=== PATIENT | female | born 1970 | race Caucasian/White ===

== ENCOUNTER 2016-04-24 12:07 | Emergency (ER) | payer MEDICAID ==
--- NOTE | 2016-04-24 12:22 | Emergency Department Record ---
History of Present Illness - General Chief Complaint: Back Pain/Injury Stated Complaint: BACK/HIP PAIN Time Seen by Provider: 04/24/16 12:21 Source: Patient Mode of Arrival: Ambulatory Limitations: No limitations - History of Present Illness Initial Comments: 46 yo female presents to ED with a CC of worsening of her chronic low back pain symptoms. Patient reports that she has been out her Flexeril for several months , has only been using Motrin as needed for her pain symptoms. Patient denies any new injury or trauma, and denies lower extremity weakness, bowel or bladder dysfunction, urinary retention, or groin numbness. MD Complaint: Back pain -: Year(s) Place: Home Radiation: None Consistency: Constant Improves With: None Worsens With: Movement, Other Context: Unknown Associated Symptoms: Denies other symptoms Treatments Prior to Arrival: Heat therapy - Related Data Home Medications Medication Instructions Recorded Confirmed Last Taken Cyclobenzaprine HCl [Flexeril] 10 mg PO DAILY PRN 07/14/14 04/24/16 3 Days Ago Acetaminophen [Tylenol Extra 1,000 mg PO DAILY tab 07/02/15 04/24/16 04/23/16 Strength] Ibuprofen 400 mg PO ASDIR tab 09/01/15 04/24/16 04/23/16 [facility] Wart 300 mg PO DAILY 09/07/15 04/24/16 Unknown Vitamin B Complex 1 each PO DAILY cap 09/07/15 04/24/16 04/23/16 Previous Rx's Medication Instructions Recorded Cyclobenzaprine HCl [Flexeril] 10 mg PO TID PRN #15 tablet 04/24/16 Allergies Allergy/AdvReac Type Severity Reaction Status Date / Time diphenhydramine HCl AdvReac Mild RAPID Verified 04/24/16 12:17 [From Benadryl] HEART RATE Travel Screening - Travel/Exposure Within Last 30 Days Have you traveled within the last 30 days?: No - Travel/Exposure Within Last Year Have you traveled outside the [place] in the last year?: No - Additonal Travel Details Have you been exposed to anyone with a communicable illness?: No - Travel Symptoms Symptom Screening: None Review of Systems Constitutional: Denies: Chills, Fever, Malaise, Night sweats Eyes: Denies: Eye discharge, Eye pain ENT: Denies: Congestion, Ear pain, Epistaxis Respiratory: Denies: Cough, Dyspnea Cardiovascular: Denies: Dyspnea on exertion, Syncope Endocrine: Denies: Fatigue, Heat or cold intolerance Gastrointestinal: Denies: Abdominal pain, Nausea, Vomiting Genitourinary: Denies: Dysuria, Frequency, Hematuria, Incontinence Musculoskeletal: Reports: Back pain. Denies: Arthralgia, Gout, Joint swelling Skin: Denies: Bruising, Change in color, Rash Neurological: Denies: Abnormal gait, Confusion, Headache, Seizure Psychiatric: Denies: Anxiety Hematological/Lymphatic: Denies: Anemia, Blood Clots Past Medical History - SOCIAL HISTORY Smoking Status: Never smoker Alcohol Use: Rare Drug Use: None - RESPIRATORY Hx Respiratory Disorders: No - CARDIOVASCULAR Hx Hypertension: Yes - NEURO Hx Neuro Disorders: No - GI Hx GI Disorders: No - Hx Genitourinary Disorders: No - ENDOCRINE Hx Endocrine Disorders: No - MUSCULOSKELETAL Hx Musculoskeletal Disorders: Yes Hx Back Injury: Yes - PSYCH Hx Psych Problems: Yes Hx Anxiety: Yes - HEMATOLOGY/ONCOLOGY Hx Hematology/Oncology Disorders: No Family Medical History Any Significant Family History?: No Physical Exam - General General Appearance: Alert, Oriented x3, Cooperative, Mild distress Limitations: No limitations - Head Head exam: Atraumatic, Normocephalic, Normal inspection Head exam detail: negative: Abrasion, Contusion, Sierra's sign, General tenderness, Hematoma, Laceration - Eye Eye exam: Normal appearance. negative: Conjunctival injection, Periorbital swelling, Periorbital tenderness, Scleral icterus - ENT Ear exam: negative: Auricular hematoma, Auricular trauma Nasal Exam: negative: Active bleeding, Discharge, Dried blood, Foreign body Mouth exam: negative: Drooling, Laceration, Muffled voice, Tongue elevation - Neck Neck exam: Normal inspection. negative: Meningismus, Tenderness - Respiratory Respiratory exam: Normal lung sounds bilaterally. negative: Rales, Respiratory distress, Rhonchi, Stridor - Cardiovascular Cardiovascular Exam: Regular rate, Normal rhythm, Normal heart sounds - GI/Abdominal GI/Abdominal exam: Soft. negative: Rebound, Rigid, Tenderness - Rectal Rectal exam: Deferred - exam: Deferred - Extremities Extremities exam: Normal inspection. negative: Pedal edema, Tenderness - Back Back exam: Reports: Paraspinal tenderness (lower lumbar spine on examination). Denies: CVA tenderness (R), CVA tenderness (L) - Neurological Neurological exam: Alert, Normal gait, Oriented X3 - Psychiatric Psychiatric exam: Normal affect, Normal mood - Skin Skin exam: Normal color. negative: Abrasion Type of lesion: negative: abrasion Course Vital Signs 04/24/16 12:09 Temperature 98.6 F Pulse Rate 84 Respiratory 18 Rate Blood Pressure 157/110 Pulse Ox 98 - Reevaluation(s) Reevaluation #1: 04/24/16 12:26 Patient denies any symptoms that are c/w spinal cord compression syndrome, will prescribe Flexeril for her increased back pain symptoms with instructions for follow-up in 3-5 days with Cat Gilliland. Disposition Disposition: Discharge Clinical Impression: Exacerbation of chronic back pain Disposition: Home, Self-Care Condition: (2) Stable Instructions: Low Back Strain (ED) Additional Instructions: Return to ED if your symptoms worsen of if you have any concerns. Flexeril as directed. Follow-up with Cat Gilliland in 3-5 days as directed. Prescriptions: Cyclobenzaprine HCl [Flexeril] 10 mg PO TID PRN #15 tablet PRN Reason: Pain - Moderate (5-7) Forms: Patient Portal Access Time of Disposition: 12:22
== END 2016-04-24 12:27 | disposition home or self-care (01) ==
LOC: ER 12:07
DX: G89.29 Other chronic pain (principal); M54.5 Low back pain; I10 Essential (primary) hypertension
CPT/HCPCS: 99282

== ENCOUNTER 2017-09-22 20:31 | Emergency (ER) | payer MEDICAID ==
--- NOTE | 2017-09-22 20:50 | Emergency Department Record ---
History of Present Illness - General Chief complaint: Rash Stated complaint: RASH Time Seen by Provider: 09/22/17 20:40 Source: Patient Mode of Arrival: Ambulatory - History of Present Illness Initial comments: Patient states that she has had a rash on her right elbow area for 24 hours. She put Calamine lotion on it, but it has not helped. She won't take benadryl because it makes her heart race. She has had poison teresa twice in the past, but doesn't think she has been exposed to it recently. She denies shortness of breath or dysphagia. She has no diabetes or blood sugar problems. She thinks she is getting itchy all over her body, but hasn't seen any rashes elsewhere.Denies other complaints Onset/Timin -: Days(s) Quality: Other Consistency: Constant Improves with: None Worsens with: None Context: None Associated symptoms: Itching Treatments Prior to Arrival: OTC topical medication Treatment Prior to Arrival Comment:: calamine lotion - Related Data Previous Rx's Medication Instructions Recorded Hydroxyzine HCl [Atarax] 50 mg PO QID #20 tablet 09/22/17 Prednisone [Prednisone 20Mg] 20 mg PO DAILY #20 tab 09/22/17 Allergies Allergy/AdvReac Type Severity Reaction Status Date / Time diphenhydramine HCl AdvReac Mild RAPID Verified 09/22/17 20:41 [From Benadryl] HEART RATE Travel Screening - Travel/Exposure Within Last 30 Days Have you traveled within the last 30 days?: No - Travel/Exposure Within Last Year Have you traveled outside the [place] in the last year?: No - Additonal Travel Details Have you been exposed to anyone with a communicable illness?: No - Travel Symptoms Symptom Screening: None Review of Systems Reviewed: No additional complaints except as noted below Constitutional: Reports: As per HPI. Denies: Chills, Fever, Malaise, Night sweats, Weakness, Weight change Eyes: Reports: As per HPI. Denies: Eye discharge, Eye pain, Photophobia, Vision change ENT: Reports: As per HPI. Denies: Congestion, Dental pain, Ear pain, Epistaxis , Hearing loss, Throat pain Respiratory: Reports: As per HPI. Denies: Cough, Dyspnea, Hemoptysis, Stridor, Wheezes Cardiovascular: Reports: As per HPI. Denies: Arrhythmia, Chest pain, Dyspnea on exertion, Edema, Murmurs, Orthopnea, Palpitations, Paroxysmal nocturnal dyspnea, Rheumatic Fever, Syncope Endocrine: Reports: As per HPI. Denies: Fatigue, Heat or cold intolerance, Polydipsia, Polyuria Gastrointestinal: Reports: As per HPI. Denies: Abdominal pain, Constipation, Diarrhea, Hematemesis, Hematochezia, Melena, Nausea, Vomiting Genitourinary: Reports: As per HPI. Denies: Abnormal menses, Discharge, Dyspareunia, Dysuria, Frequency, Hematuria, Incontinence, Retention, Urgency Musculoskeletal: Reports: As per HPI. Denies: Arthralgia, Back pain, Gout, Joint swelling, Myalgia, Neck pain Skin: Reports: As per HPI. Denies: Bruising, Change in color, Change in hair/ nails, Lesions, Pruritus, Rash Neurological: Reports: As per HPI. Denies: Abnormal gait, Confusion, Headache, Numbness, Paresthesias, Seizure, Tingling, Tremors, Vertigo, Weakness Psychiatric: Reports: As per HPI. Denies: Anxiety, Auditory hallucinations, Depression, Homicidal thoughts, Suicidal thoughts, Visual hallucinations Hematological/Lymphatic: Reports: As per HPI. Denies: Anemia, Blood Clots, Easy bleeding, Easy bruising, Swollen glands Past Medical History - SOCIAL HISTORY Smoking Status: Never smoker Alcohol Use: Occasional Drug Use: None - RESPIRATORY Hx Respiratory Disorders: No - CARDIOVASCULAR Hx Cardio Disorders: Yes Hx Hypertension: Yes - NEURO Hx Neuro Disorders: No - GI Hx GI Disorders: No - Hx Genitourinary Disorders: No - ENDOCRINE Hx Endocrine Disorders: No - MUSCULOSKELETAL Hx Musculoskeletal Disorders: Yes Hx Back Injury: Yes - PSYCH Hx Psych Problems: Yes Hx Anxiety: Yes - HEMATOLOGY/ONCOLOGY Hx Hematology/Oncology Disorders: No Family Medical History Any Significant Family History?: No Physical Exam - General General Appearance: Alert, Oriented x3, Cooperative, No acute distress, Other ( obese) - Head Head exam: Normal inspection - Eye Eye exam: Normal appearance, PERRL, EOMI. negative: Nystagmus Pupils: Normal accommodation - ENT ENT exam: Normal exam, Mucous membranes moist, Normal external ear exam, Normal orophraynx, TM's normal bilaterally Ear exam: Normal external inspection. negative: External canal tenderness Nasal Exam: Normal inspection. negative: Discharge, Sinus tenderness Mouth exam: Normal external inspection, Tongue normal Teeth exam: Normal inspection. negative: Dental caries Throat exam: Normal inspection. negative: Tonsillar erythema, Tonsillar exudate - Neck Neck exam: Normal inspection, Full ROM. negative: Lymphadenopathy, Meningismus , Tenderness - Respiratory Respiratory exam: Normal lung sounds bilaterally. negative: Decreased breath sounds, Prolonged expiratory, Respiratory distress, Stridor, Wheezes - Cardiovascular Cardiovascular Exam: Regular rate, Normal rhythm, Normal heart sounds - GI/Abdominal GI/Abdominal exam: Soft, Normal bowel sounds. negative: Tenderness - Rectal Rectal exam: Deferred - exam: Deferred - Extremities Extremities exam: Normal inspection, Full ROM, Normal capillary refill. negative: Tenderness - Back Back exam: Reports: Normal inspection, Full ROM. Denies: Muscle spasm, Rash noted, Tenderness - Neurological Neurological exam: Alert, CN II-XII intact, Normal gait, Oriented X3, Reflexes normal. negative: Motor sensory deficit - Psychiatric Psychiatric exam: Normal affect, Normal mood - Skin Skin exam: Dry, Intact, Normal color, Rash (over antecubital fossa of right elbow, nocircumferential, pruritic, tiny vessicles consistent withpoison teresa type rash, no cellulitis), Warm Course Vital Signs 09/22/17 20:36 Temperature 99 F Pulse Rate [ 69 Pulse Ox Probe] Respiratory 24 Rate Blood Pressure 127/77 [Left Arm] Pulse Ox 98 Medical Decision Making - Management Options MDM Management: No Additional Work-up Planned Disposition Disposition: Discharge Clinical Impression: Poison teresa, Rash and nonspecific skin eruption Disposition: Home, Self-Care Condition: (1) Good Instructions: Urticaria (ED), Acute Rash (ED) Additional Instructions: Take prednisone taper as instructed: 3 pills daily for 3 days, 2 for 3 days, 1 for 3 days, 1/2 for 4 days, then stop. Vistaril 50 mg every 6-8 hours until rash resolves. May cause drowsiness. Do not scratch rash. May cover with hydrocortisone cream over the counter if helpful. Follow up with PCP next week as needed. Prescriptions: Hydroxyzine HCl [Atarax] 50 mg PO QID #20 tablet Prednisone [Prednisone 20Mg] 20 mg PO DAILY #20 tab Quality - Quality Measures Quality Measures: N/A - Blood Pressure Screening Does Patient Have Any of the Following: No Blood Pressure Classification: Pre-Hypertensive BP Reading Systolic Measurement: 127 Diastolic Measurement: 77 Screening for High Blood Pressure: < Normal BP, F/U Not Required > [G8706]
[2017-09-22] MEDS ORDERED: METHYLPREDNISOLONE PF 125MG/VIAL IM ONE (20:54)
[2017-09-22] MEDS ORDERED: HYDROXYZINE PAMOATE 25 MG CAPSULE PO ONE (20:54)
== END 2017-09-22 21:07 | disposition home or self-care (01) ==
LOC: ER 20:31
DX: L23.7 Allergic contact dermatitis due to plants, except food (principal); I10 Essential (primary) hypertension
CPT/HCPCS: 96372; 99282; 99283; J2930

== ENCOUNTER 2017-10-30 15:30 | Emergency (ER) | payer MEDICAID ==
--- NOTE | 2017-10-30 16:09 | Emergency Department Record ---
History of Present Illness - General Chief complaint: Vaginal bleeding Stated complaint: VAGINAL BLEEDING,ABDOMINAL CRAMPS/PAIN Time Seen by Provider: 10/30/17 15:58 Source: Patient Mode of Arrival: Ambulatory Limitations: No limitations - History of Present Illness Initial comments: The patient has had irregular vaginal bleeding for about a month. She seems to bleed mildly for a week on and then off for a week. There also is mild pelvic cramping off and on. The patient is very concerned about uterine CA because her mother had it similar to this. She denies any fever, chills, dysuria, nausea, vomiting, or diarrhea. Complaint: Vaginal bleeding Onset/Timin -: Month(s) Patient : No - Related Data Allergies Allergy/AdvReac Type Severity Reaction Status Date / Time diphenhydramine HCl AdvReac Mild RAPID Verified 10/30/17 15:46 [From Benadryl] HEART RATE Travel Screening - Travel/Exposure Within Last 30 Days Have you traveled within the last 30 days?: No - Travel/Exposure Within Last Year Have you traveled outside the [place] in the last year?: No - Additonal Travel Details Have you been exposed to anyone with a communicable illness?: No - Travel Symptoms Symptom Screening: None Review of Systems Constitutional: Denies: Chills, Fever Eyes: Denies: Eye discharge ENT: Denies: Congestion Respiratory: Denies: Cough, Dyspnea Past Medical History - SOCIAL HISTORY Smoking Status: Never smoker Alcohol Use: Rare Drug Use: None - RESPIRATORY Hx Respiratory Disorders: No - CARDIOVASCULAR Hx Cardio Disorders: Yes Hx Hypertension: Yes - NEURO Hx Neuro Disorders: Yes Hx Dizziness: Yes - GI Hx GI Disorders: Yes Hx Abdominal Pain: Yes (lower abdomin, under ribs, right side) - Hx Genitourinary Disorders: No - ENDOCRINE Hx Endocrine Disorders: No - MUSCULOSKELETAL Hx Musculoskeletal Disorders: Yes Hx Back Injury: Yes - PSYCH Hx Psych Problems: Yes Hx Anxiety: Yes - HEMATOLOGY/ONCOLOGY Hx Hematology/Oncology Disorders: No Family Medical History Any Significant Family History?: Yes Hx Cancer: Father, Mother *Cancer Comment: breast cyst, endometrial cancer, father sister breast cancer Hx HTN: Mother Physical Exam - General General Appearance: Alert, Oriented x3, Cooperative, No acute distress - Head Head exam: Atraumatic, Normocephalic, Normal inspection - Eye Eye exam: Normal appearance, PERRL - Neck Neck exam: Normal inspection, Full ROM. negative: Tenderness - Respiratory Respiratory exam: Normal lung sounds bilaterally. negative: Respiratory distress - Cardiovascular Cardiovascular Exam: Regular rate, Normal rhythm, Normal heart sounds - GI/Abdominal GI/Abdominal exam: Soft, Normal bowel sounds. negative: Rebound, Rigid, Tenderness - Extremities Extremities exam: Normal inspection, Full ROM, Normal capillary refill. negative: Tenderness - Neurological Neurological exam: Alert. negative: Motor sensory deficit Course Vital Signs 10/30/17 15:44 Temperature 98.4 F Pulse Rate [ 72 Pulse Ox Probe] Respiratory 16 Rate Blood Pressure 111/74 [Left Arm] Pulse Ox 97 - Reevaluation(s) Reevaluation #1: The patient is doing OK at this time. She denies any pain or discomfort. I did discuss the lab and US results and the need for F/U with her PCP for possible further evaluation. 10/30/17 18:10 Medical Decision Making - Data Complexity MDM Data: Labs Ordered and/or Reviewed, X-Ray Ordered and/or Reviewed - Lab Data Result diagrams: 10/30/17 16:18 10/30/17 16:18 - Radiology Data Radiology results: Report reviewed (US: small 1 cm uterine fibroid, L ovary neg , R ovary not visualized. O/W neg.) Disposition Disposition: Discharge Clinical Impression: Dysfunctional uterine bleeding Disposition: Home, Self-Care Condition: (2) Stable Instructions: Dysfunctional Uterine Bleeding (ED) Additional Instructions: Please stop the Motrin and only use Tylenol for pain. Please see your family doctor for further evaluation. Forms: Patient Portal Access Time of Disposition: 18:12 Quality - Quality Measures Quality Measures: N/A - Blood Pressure Screening View Details: Yes Does Patient Have Any of the Following: No Blood Pressure Classification: Normal BP Reading Systolic Measurement: 111 Diastolic Measurement: 74 Screening for High Blood Pressure: < Normal BP, F/U Not Required > [G8783]
[2017-10-30 16:36] LABS: BASO % 0.5 % (0-6); GRAN % 64.7 % (47-80); HEMATOCRIT 39.4 % (35.0-47.0); HEMOGLOBIN 12.7 gm/dl (11.6-16.0); LYMPH % 26.6 % (16-45); MEAN CELL VOLUME 93.4 fl (81-97); MEAN CORPUSCULAR HEMOGLOBIN 30.1 pg (27-33); MEAN CORPUSCULAR HGB CONC 32.2 g/dl (32-36); MONO % 7.2 % (0-9); PLATELET COUNT 409 K/uL (130-400); RED BLOOD COUNT 4.22 M/uL (3.80-5.40); RED CELL DISTRIBUTION WIDTH 13.3 % (11.5-14.5); WHITE BLOOD COUNT W/O DIFF 8.2 K/uL (4.2-12.2)
[2017-10-30 16:50] LABS: BILIRUBIN,TOTAL 0.2 mg/dL (0.2-1.0); CREATININE 1.1 mg/dL (0.5-0.9); TOTAL PROTEIN 7.5 g/dL (6.6-8.7)
[2017-10-30 16:55] LABS: ALB/GLOB RATIO 1.3 (1.1-1.8); ALBUMIN 4.2 g/dL (4.0-5.0)
--- NOTE | 2017-11-01 13:12 | ULTRASOUND REPORT ---
EXAM: PELVIC ULTRASOUND COMPLETE, TRANSABDOMINAL AND TRANSVAGINAL HISTORY: IRREGULAR BLEEDING. TECHNIQUE: Transvaginal images were obtained after the transabdominal images for improved visualization of the uterus and ovaries. Comparison: None. FINDINGS: TRANSABDOMINAL PELVIC ULTRASOUND: The uterus has normal size, measures 9.8 x 5.3 x 6.0 cm. Uterine fibroids are better seen transvaginally. The endometrium is not well seen due to bowel gas. The right ovary is not identified due to bowel gas. The left ovary measures 1.8 x 1.3 x 1.6 cm. No ascites. TRANSVAGINAL PELVIC ULTRASOUND: The uterus has normal size. The endometrium has normal thickness, 10 mm. An anterior intramural fibroid is present that measures 1.1 cm.. The left ovary has normal morphology and size. The right ovary is not visualized due to bowel gas. Duplex Doppler evaluation was performed to evaluate for ovarian torsion. Normal arterial and venous waveforms in the left ovary. The right ovary was not visualized. IMPRESSION: 1. SMALL INTRAMURAL FIBROID. NORMAL ENDOMETRIAL THICKNESS. 2. NORMAL FINDINGS IN THE LEFT OVARY. THE RIGHT OVARY WAS NOT VISUALIZED. JOB NUMBER: [id number] [facility]
== END 2017-10-30 18:33 | disposition home or self-care (01) ==
LOC: ER 15:30
DX: N93.8 Other specified abnormal uterine and vaginal bleeding (principal); I10 Essential (primary) hypertension
CPT/HCPCS: 76830; 76856; 80053; 84703; 85025; 99283; 99284